=== PATIENT | female | born 1975 | race Caucasian/White ===

== ENCOUNTER 2022-12-03 02:51 | Emergency (ER) | payer OTHER, SELFPAY ==
[2022-12-03 02:57] VITALS: BP 152/70; PULSE 66; O2SAT 99
[2022-12-03 03:01] VITALS: BP 129/77; PULSE 93; RESP 18; TEMP 36.6; O2SAT 95; BMI 27.8
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
[2022-12-03 04:15] VITALS: BP 130/71; PULSE 78; RESP 14; TEMP 37.1; O2SAT 96
--- NOTE | 2022-12-03 04:29 | PC.NURSE ---
pt asleep comfortably on stretcher equal chest rise and fall no apparent distress. call sanchez within reach will CTM
== END 2022-12-03 06:09 | disposition home or self-care (01) ==
PROVIDERS: Emergency Provider Student in an Organized Health Care Education/Training Program
DX: F14.10 Cocaine abuse, uncomplicated (principal); I10 Essential (primary) hypertension
CPT/HCPCS: 99283; 99284

== ENCOUNTER 2024-09-02 13:01 | Emergency (ER) | payer OTHER, SELFPAY ==
[2024-09-02 13:22] VITALS: BP 147/99; PULSE 104; RESP 18; TEMP 36.4; O2SAT 96; BMI 41.6
--- NOTE | 2024-09-02 13:23 | ED.GENADULT ---
HPI - General Adult General Chief complaint: Psychiatric Symptoms Stated complaint: crisis Time Seen by Provider: 09/02/24 13:35 Source: patient History of Present Illness ED Provider: nallely myers np HPI narrative: Reports that she was in [facility] in [place] for approximately 7-8 months. She states that after she was discharged she went to her son's house for approximately 1 week. And then she states ?I got dropped off in [place] because I wanted to get high?. She states that she last received her Methadone 80 mg 2 days ago at [facility]. She endorses that she was kicked out of detox as they were trying to wean her off of her regular medications instead of giving her methadone. Asked to use crack cocaine and heroin/fentanyl yesterday. She endorses suicidal ideations with a plan to jump off of a bridge. Admits to increased stressors with her son currently of cancer. She denies any physical complaints at this time. She denies any homicidal ideations. She denies any hallucinations. Denies any alcohol usage. Related Data Home Medications ?Medication ?Instructions ?Recorded ?Confirmed amlodipine 10 mg tablet 10 mg PO DAILY 09/02/24 09/02/24 carisoprodol 350 mg tablet 350 mg PO BID 09/02/24 09/02/24 clonazepam 1 mg tablet 1 mg PO BID 09/02/24 09/02/24 clonidine HCl 0.1 mg tablet 0.1 mg PO BID PRN Anxiety 09/02/24 09/02/24 docusate sodium 100 mg capsule 100 mg PO BID 09/02/24 09/02/24 (Stool Softener) duloxetine 20 mg capsule,delayed 40 mg PO BID 09/02/24 09/02/24 release gabapentin 300 mg capsule 300 mg PO TID 09/02/24 09/02/24 hydroxyzine pamoate 50 mg capsule 50 mg PO TID PRN Anxiety 09/02/24 09/02/24 ibuprofen 800 mg tablet 800 mg PO TID PRN Pain 09/02/24 09/02/24 omeprazole 20 mg capsule,delayed 20 mg PO DAILY@0630 09/02/24 09/02/24 release propranolol 10 mg tablet 10 mg PO DAILY 09/02/24 09/02/24 methadone 10 mg/mL oral 80 mg PO DAILY 09/03/24 09/03/24 concentrate (Methadone Intensol) Allergies Allergy/AdvReac Type Severity Reaction Status Date / Time haloperidol [From HALDOL] Allergy Unknown ANAPHYLAXIS Verified 09/02/24 13:27 naproxen [From NAPROSYN] Allergy Unknown UNKNOWN Verified 09/02/24 13:27 olanzapine [From ZYPREXA] Allergy Unknown ANAPHYLAXIS Verified 09/02/24 13:27 Review of Systems Review of Systems: Yes all other systems are reviewed and are negative PMFSH Past Medical History Attestation statement: The following information was validated with the patient. Source: old records reviewed Social History Social History Smoked in Last 30 Days: Yes Use of substances other than those prescribed or required for medical reasons: Yes Substance Use Type: Crack/Cocaine, Heroin and Opiates Substance Use Frequency: Chronic Longstanding Last Used Substance: Days (ago) Any prior treatment program specific to substance use: Yes Advance Directives: No Advance Directives Information Provided: No Do you have a plan to hurt others: No Plan Patient : No Physical Exam ED Vital Signs: Vital Signs - 24 hr 09/03/24 16:13 09/04/24 01:41 09/04/24 08:05 Temperature 97.7 F 98.7 F 98.6 F Pulse Rate 72 64 69 Respiratory Rate 13 16 16 Blood Pressure 113/74 151/79 H 126/57 L Pulse Oximetry 96 92 92 Oxygen Delivery Method Room Air Room Air Room Air 09/04/24 08:06 Temperature Pulse Rate Respiratory Rate Blood Pressure 126/57 L Pulse Oximetry Oxygen Delivery Method BMI result Body Mass Index 41.6 Appearance: Alert.?Oriented to person, place and time. No acute distress.?Normal affect. Eyes: Pupils equal, round and reactive to light.? ENT: Pharynx normal.?? Neck: Normal inspection.? Neck supple.?? CVS: Heart sounds normal. Normal heart rate and rhythm.? Pulses normal.?? Respiratory: No respiratory distress.? Lung sounds clear to auscultation bilaterally?? Abdomen: Soft and non-tender. Normoactive bowel sounds. Skin: Skin warm and dry.? Normal skin color.? Extremities: No lower extremity edema.? Neuro: Moves all extremities spontaneously. Sensation intact bilaterally. CN II-XII intact. No focal neuro deficits. Ambulates with normal steady gait. Course Course Course Narrative: This is a rapid medical exam performed by Daquan Ny NP: Additional HPI, ROS, PE not included below will be deferred to primary provider. 09/02/24 13:23 Patient is a 49-year-old female presenting to the ED with report of suicidal ideation after being kicked out of detox. Plan to jump off the bridge. Reports issues with detox, stating they were weaning her off her regular medications instead of getting her on methadone. Last used crack or heroin/fentanyl yesterday, denies alcohol use. States son is dying of cancer. Plan: med clearance, CARE eval Reevaluation(s) Reevaluation #1: Time: 19:36 Date: 09/03/24 Provider: Jai Russell MD Patient in physician observation for psychiatric evaluation.? No acute events reported overnight. No current complaints. VS stable.? Patient is in bed search status.. Will continue to monitor. The patient is methadone dosing was confirmed. The patient normally takes 80 mg of methadone. However because the patient had not taken methadone for 3 days the patient was given 60 mg of methadone today. Reevaluation #2: Time: 10:51 Date: 09/04/24 Provider: Yanely Webb DO Physician observation ended at 1051am. Patient to be admitted as inpatient to psychiatry [facility] Medications Administered Generic Name Dose Route Start Last Admin Trade Name Freq PRN Reason Stop Dose Admin Amlodipine Besylate 10 mg 09/03/24 09:00 09/04/24 08:10 Amlodipine Besylate 10 Mg Tablet PO Not Given DAILY SIDRA Protocol Carisoprodol 350 mg 09/02/24 21:00 09/04/24 08:06 Carisoprodol 350 Mg Tablet PO 350 mg BID SIDRA Administration Clonazepam 1 mg 09/02/24 21:00 09/04/24 08:06 Clonazepam 1 Mg Tablet PO 1 mg BID SIDRA Administration Docusate Sodium 100 mg 09/02/24 21:00 09/04/24 08:06 Docusate Sodium 100 Mg Capsule PO 100 mg BID SIDRA Administration Duloxetine HCl 40 mg 09/02/24 21:00 09/04/24 08:06 Duloxetine Hcl 20 Mg Capsule. PO 40 mg BID SIDRA Administration Gabapentin 300 mg 09/02/24 21:00 09/04/24 08:06 Gabapentin 300 Mg Capsule PO 300 mg TID SIDRA Administration Ibuprofen 800 mg 09/02/24 16:00 09/04/24 01:35 Ibuprofen 800 Mg Tablet PO 800 mg TID PRN Administration Pain, Moderate(Pain Scale 4-6) Omeprazole 20 mg 09/03/24 06:30 09/04/24 08:06 Omeprazole 20 Mg Capsule. PO 20 mg DAILY@0630 SIDRA Administration Propranolol HCl 10 mg 09/03/24 09:00 09/04/24 08:06 Propranolol Hcl 10 Mg Tablet PO 10 mg DAILY SIDRA Administration Protocol Discontinued Medications Generic Name Dose Route Start Last Admin Trade Name Roberthq PRN Reason Stop Dose Admin Ibuprofen 600 mg 09/03/24 04:36 09/03/24 06:18 Ibuprofen 600 Mg Tablet PO 09/03/24 04:37 Not Given ONCE ONE Methadone HCl 30 mg 09/03/24 09:18 09/03/24 09:37 Methadone Hcl 20 Mg/2 Ml Oral.Conc PO 09/03/24 09:19 30 mg ONCE ONE Administration Methadone HCl 30 mg 09/03/24 12:00 09/03/24 12:25 Methadone Hcl 20 Mg/2 Ml Oral.Conc PO 09/03/24 12:01 30 mg ONCE ONE Administration Methadone HCl 40 mg 09/04/24 07:42 09/04/24 08:07 Methadone Hcl 20 Mg/2 Ml Oral.Conc PO 09/04/24 07:43 40 mg ONCE ONE Administration Methadone HCl 30 mg 09/04/24 10:10 09/04/24 10:25 Methadone Hcl 20 Mg/2 Ml Oral.Conc PO 09/04/24 10:11 30 mg ONCE ONE Administration Nicotine 21 mg 09/03/24 12:40 09/03/24 13:25 Nicotine 21 Mg Patch.Td24 TRANSDERMA 09/03/24 12:41 21 mg ONCE ONE Administration Medical Decision Making Medical Decision Making MDM Narrative: Patient is a 49-year-old female with past medical history of polysubstance use disorder, anxiety, depression, hypertension who presents emergency department for evaluation of suicidal ideations with a plan as per HPI. She offers no physical complaints and physical examination is overall benign. She arrives mildly tachycardic, she does endorse feeling anxious. Plan to obtain serum labs for medical clearance, referred to care team for safe disposition planning given her suicidal ideations. Differential Diagnosis Differential Diagnoses: The differential diagnosis associated with the presentation includes (See narrative above and below for further detail) Admission/Observation Consideration of admission/observation: Escalation of care including admission/observation considered Patient is being observed in the Emergency Department for depression and anxiety. Observation time was started at 14:05 on 09/02/24.?The patient is currently stable and non-toxic appearing. Observation is being initiated in the Emergency Department to allow time to help differentiate if the patient's depression and anxiety is due to Substance Induced Mood Disorder and Anxiety versus Major Depressive Disorder, Bipolar Jina, Bipolar Depression, and Schizophrenia. The patient will receive frequent psychiatric assessments from the provider as well as from nursing staff. The patient will also be monitored for the need of PRN agitation medications such as Haldol, Ativan, and Benadryl. Consult Healthcare Provider Management of the patient was discussed with: Behavioral Health Provider (CARE team) Lab Data MDM Lab Attestation statement: I reviewed the patient's lab results. 09/03/24 07:52 09/02/24 15:49 Labs: Lab Results 09/02/24 09/02/24 09/03/24 Range/Units 13:44 15:49 07:52 WBC 8.2 (4.8-10.8) X10*3/uL RBC 5.38 (4.20-5.50) X10*6/uL Hgb 15.9 (12.0-16.0) g/dl Hct 46.8 (37.0-47.0) % MCV 87.0 (80.0-98.0) fL MCH 29.6 (27.0-33.0) pg MCHC 34.0 (31.0-35.0) g/dl RDW 13.2 (11.0-16.0) % Plt Count 327 (160-400) X10*3/uL MPV 9.9 (9.4-12.3) fL Immature Gran % (Auto) 0.1 (0.0-0.4) % Neut % (Auto) 65.3 (45-73) % Lymph % (Auto) 20.5 (20-40) % [place] % (Auto) 10.0 (2-11) % Eos % (Auto) 3.5 (0-4) % Baso % (Auto) 0.6 (0-2) % Lymph # (Auto) 1.7 (1.2-4.9) X10*3/uL [place] # (Auto) 0.8 (0.1-1.2) X10*3/uL Eos # (Auto) 0.3 (0.0-0.4) X10*3/uL Baso # (Auto) 0.1 (0.0-0.2) X10*3/uL Abs Immat Gran (auto) 0.01 (0.00-0.03) X10*3/uL Absolute Neuts (auto) 5.3 (2.0-8.3) x10*3/uL Absolute Nucleated RBC 0.000 (0.0-0.012) X10*3/uL Nucleated RBC % (auto) 0.0 (0.0-0.2) /100WBC Sodium 140 (135-145) mmol/L Potassium 4.4 (3.3-5.1) mmol/L Chloride 103 (96-108) mmol/L Carbon Dioxide 25 (22-29) mmol/L Anion Gap 16 (12-20) BUN 9 (9-16) mg/dL Creatinine 0.65 (0.5-1.4) mg/dL Estim Creat Clear Calc 110.8 Estimated GFR > 60 Random Glucose 123 H (60-115) mg/dL Calcium 9.1 (8.4-10.2) mg/dL Total Bilirubin 0.4 (0.0-1.0) mg/dL AST 69 H (5-31) U/L ALT 46 H (0-31) U/L Alkaline Phosphatase 75 (39-117) U/L Total Protein 8.2 H (6.5-8.0) g/dL Albumin 3.9 (3.5-5.0) g/dL Urine Color Yellow Urine Appearance Cloudy Urine pH 6.5 (5.0-9.0) Ur Specific [place] 1.010 (1.005-1.025) Urine Protein Negative (Neg-Trace) mg/dL Urine Glucose (UA) Negative (Negative) mg/dL Urine Ketones Trace (Negative) mg/dL Urine Blood Trace H (Negative) Urine Nitrite Negative (Negative) Ur Leukocyte Esterase Negative (Negative) Urine RBC 0-2 (0-2) /HPF Urine WBC 0-5 (0-5) /HPF Ur Squamous Epith Cells >20 (0-2) /HPF Urine Bacteria Trace (None Seen) Hyaline Casts 0-2 (0-2) /LPF Urine Opiates Screen POSITIVE H (Not Detect) Ur Buprenorphine Scrn Not Detected (Not Detect) ng/mL Ur Oxycodone Screen Not Detected (Not Detect) ng/mL Urine Methadone Screen Positive H (Not Detect) ng/mL Urine Fentanyl Screen POSITIVE H (Not Detect) Ur Barbiturates Screen Not Detected (Not Detect) Ur Phencyclidine Scrn Not Detected (Not Detect) Ur Amphetamines Screen Not Detected (Not Detect) U Benzodiazepines Scrn POSITIVE H (Not Detect) Urine Cocaine Screen POSITIVE H (Not Detect) U Marijuana (THC) Screen Not Detected (Not Detect) Ethyl Alcohol < 10 mg/dL Influenza Type A (PCR) NEGATIVE (Negative) Influenza Type B (PCR) NEGATIVE (Negative) RSV RNA Qual (PCR) NEGATIVE (Negative) SARS-CoV-2 RNA (RT-PCR) NEGATIVE (Negative) External Record Review External record reviewed: Outpatient record Chronic Conditions Patient?s care impacted by: Other (See narrative above) Discharge Plan Discharge Clinical Impression: Suicidal ideation Patient Disposition: [facility] Transfer Details: Alida Loera Prescriptions: No Action carisoprodol 350 mg tablet 350 mg PO BID clonidine HCl 0.1 mg tablet 0.1 mg PO BID PRN (Reason: Anxiety) ibuprofen 800 mg tablet 800 mg PO TID PRN (Reason: Pain) clonazepam 1 mg tablet 1 mg PO BID hydroxyzine pamoate 50 mg capsule 50 mg PO TID PRN (Reason: Anxiety) propranolol 10 mg tablet 10 mg PO DAILY amlodipine 10 mg tablet 10 mg PO DAILY docusate sodium [Stool Softener] 100 mg capsule 100 mg PO BID gabapentin 300 mg capsule 300 mg PO TID omeprazole 20 mg capsule,delayed release(DR/EC) 20 mg PO DAILY@0630 duloxetine 20 mg capsule,delayed release(DR/EC) 40 mg PO BID methadone [Methadone Intensol] 10 mg/mL Concentrate 80 mg PO DAILY Interventions: [place]-Suicide Risk Severity Scale Last Done: 09/03/24 15:00 Print Language: Ivorian
--- NOTE | 2024-09-02 14:33 | MHC.EDTECH ---
Syd[place] in traige tried twice on blood draw. I also tried twice in the pod and was unsuccessful. Patient is a difficult stick with very limited access.
[2024-09-02 14:51] LABS: Influenza A PCR NEGATIVE (Negative); Influenza B PCR NEGATIVE (Negative); Resp Syncy Virus RNA Qual PCR NEGATIVE (Negative); SARS COV2 PCR INHOUSE NEGATIVE (Negative)
--- NOTE | 2024-09-02 15:33 | PHA.MEDREC ---
Addendum entered by Jina Hansen RPh 09/02/24 15:44: MED REC REVIEWED BY [facility] Original Note: Pharmacy Consult ? Medication Reconciliation Pharmacy has completed the medication reconciliation. Used patient blister packs to confirm med rec ([facility]). Docusate, omeprazole, and ibuprofen are all dated from February 2024. Hydroxyzine was dated from January 2024.
[2024-09-02 16:32] LABS: Alanine Aminotransferase 46 U/L (0-31); Albumin Level 3.9 g/dL (3.5-5.0); Anion Gap 16 (12-20); Aspartate Amino Transferase 69 U/L (5-31); Bilirubin Total 0.4 mg/dL (0.0-1.0); Blood Urea Nitrogen 9 mg/dL (9-16); Calcium 9.1 mg/dL (8.4-10.2); Carbon Dioxide 25 mmol/L (22-29); Chloride 103 mmol/L (96-108); Creatinine Clr Calc Pharmacy 110.8; Estimated Glomerular Filt Rate > 60; Ethanol < 10 mg/dL; Glucose Random 123 mg/dL (60-115); Potassium 4.4 mmol/L (3.3-5.1); Sodium 140 mmol/L (135-145); Total Protein 8.2 g/dL (6.5-8.0)
[2024-09-02 16:47] LABS: Alkaline Phosphatase 75 U/L (39-117)
[2024-09-02 17:29] VITALS: BP 129/68; PULSE 88; RESP 14; O2SAT 93
--- NOTE | 2024-09-02 20:31 | PC.NURSE ---
patient resting in bed upon t/ws arrival to unit, cbc was not obtained, provider had requsted again for staff to attempt. t/w approached and client declined not tonight even with differing staff.
[2024-09-02] MEDS: carisoprodoL 350 MG TABLET PO (20:45)
[2024-09-02] MEDS: Docusate Sodium 100 MG CAPSULE PO (20:46)
[2024-09-02] MEDS: DULoxetine HCl 20 MG CAPSULE.DR 40 MG PO (20:46)
[2024-09-02] MEDS: clonazePAM 1 MG TABLET PO (20:46)
[2024-09-02] MEDS: Gabapentin 300 MG CAPSULE PO (20:46)
--- NOTE | 2024-09-03 03:18 | PC.NURSE ---
report received from Gabrielle rn, pt sleeping at this time.
--- NOTE | 2024-09-03 04:11 | PC.NURSE ---
pt has back pain from the bed. Pain scale is over 6/10, provider called for appropriate pain med.
--- NOTE | 2024-09-03 04:28 | PC.NURSE ---
pt has back pain 03/02. pt now states that she is feeling dizzy. pt is alert and oriented, vitals taken 147/81, hr 82, sat 96% 97.5 oral.
[2024-09-03 04:30] VITALS: BP 147/81; PULSE 82; RESP 17; TEMP 36.4; O2SAT 96
--- NOTE | 2024-09-03 04:34 | PC.NURSE ---
pt doesnt want to be woken up for her 0630 medication.
[2024-09-03] MEDS: Ibuprofen 800 MG TABLET PO (04:42)
--- NOTE | 2024-09-03 04:46 | PC.NURSE ---
pt has her underpants off and on her chair. pt states she wants to wash them today. pt informed that we have lavonne pants and mesh underpants for her and she declined. pt was getting upset and states she doesn't want the pants or briefs.
--- NOTE | 2024-09-03 04:48 | PC.NURSE ---
pt is in a green gown and came over from the ed already changed over per prev rn Gabrielle.
--- NOTE | 2024-09-03 04:55 | PC.NURSE ---
pt refused to give her under pants over to this rn. pt does have pod lavonne pants on. Pt refused to give up the underpants and stuffed them down her lavonne pants, security is aware and we are monitoring. Underpants left in the room by prev shift.
[2024-09-03 06:21] VITALS: BP 147/81; PULSE 82; RESP 17; TEMP 36.4
[2024-09-03 07:57] LABS: MANUAL DIFF FLAG NO
[2024-09-03 08:07] LABS: Basophils Absolute Auto 0.1 X10*3/uL (0.0-0.2); Basophils Percent Auto 0.6 % (0-2); Eosinophils Absolute Auto 0.3 X10*3/uL (0.0-0.4); Eosinophils Percent Auto 3.5 % (0-4); Hematocrit 46.8 % (37.0-47.0); Hemoglobin 15.9 g/dl (12.0-16.0); Imm Gran Abs Auto 0.01 X10*3/uL (0.00-0.03); Imm Gran Pct Auto 0.1 % (0.0-0.4); Lymphocytes Absolute Auto 1.7 X10*3/uL (1.2-4.9); Lymphocytes Percent Auto 20.5 % (20-40); Mean Corpuscular Hemoglobin 29.6 pg (27.0-33.0); Mean Platelet Volume 9.9 fL (9.4-12.3); Monocytes Absolute Auto 0.8 X10*3/uL (0.1-1.2); Neutrophils Absolute Auto 5.3 x10*3/uL (2.0-8.3); Neutrophils Percent Auto 65.3 % (45-73); Platelet Count 327 X10*3/uL (160-400); Red Blood Count 5.38 X10*6/uL (4.20-5.50); Red Cell Distribution Width 13.2 % (11.0-16.0); White Blood Count 8.2 X10*3/uL (4.8-10.8)
[2024-09-03 08:08] LABS: Amphetamine Screen Urine Not Detected (Not Detect); Barbiturates, Urine Not Detected (Not Detect); Benzodiazepines Screen Urine POSITIVE (Not Detect); Buprenorphine Scr Not Detected (Not Detect); Cannabinoid Screen Urine Not Detected (Not Detect); Cocaine Screen Urine POSITIVE (Not Detect); Fentanyl, urine POSITIVE (Not Detect); Methadone Screen, Urine Positive (Not Detect); Opiate Screen Urine POSITIVE (Not Detect); Oxycodone Screen Urine Not Detected (Not Detect); Phencyclidine Screen Urine Not Detected (Not Detect)
[2024-09-03 08:10] LABS: Appearance Urine Cloudy; Color Urine Yellow; Glucose Urine UA Negative (Negative); Leukocyte Esterase Urine Negative (Negative); Nitrite Urine Negative (Negative); PH 6.5 (5.0-9.0); UMIC TRIGGER UACC YES; Urine Blood Trace (Negative); Urine Ketones Trace mg/dL (Negative); Urine Protein Negative (Neg-Trace)
[2024-09-03] MEDS: DULoxetine HCl 20 MG CAPSULE.DR 40 MG PO ×2 (08:10→20:11)
[2024-09-03] MEDS: amLODIPine Besylate 10 MG TABLET PO (08:10)
[2024-09-03] MEDS: clonazePAM 1 MG TABLET PO ×2 (08:11→20:11)
[2024-09-03] MEDS: Gabapentin 300 MG CAPSULE PO ×3 (08:11→20:11)
[2024-09-03] MEDS: Omeprazole 20 MG CAPSULE.DR PO (08:11)
[2024-09-03] MEDS: Propranolol HCL 10 MG TABLET PO (08:11)
[2024-09-03] MEDS: carisoprodoL 350 MG TABLET PO ×2 (08:12→20:11)
[2024-09-03] MEDS: Docusate Sodium 100 MG CAPSULE PO ×2 (08:12→20:11)
[2024-09-03 08:15] LABS: Bacteria Urine Trace (None Seen); Hyaline Casts Urine 0-2 /LPF (0-2); RBC Urine 0-2 /HPF (0-2); Squamous Epithelial Cell Urine >20 /HPF (0-2); WBC Urine 0-5 /HPF (0-5)
--- NOTE | 2024-09-03 09:05 | PC.NURSE ---
Patient requesting methadone at shift change. stating gets methadone [facility]. Attempted to call multiple numbers for [facility] in [facility], unable to verify methadone dose. Patient stating that she actually gets her methadone from [facility] in [place]. [facility] to find [facility] in [facility]. [place] [facility] stating there is not [place] [facility] and attemtped to transfer this RN to speak with nursing staff at this facility phone rings and then hags up. Provider aware that patient is stating she takes 80mg of methadone but dose has been unable to be verified
[2024-09-03] MEDS: methADONE HCl 20 MG/2 ML ORAL.CONC 30 MG PO ×2 (09:37→12:25)
--- NOTE | 2024-09-03 11:32 | PC.NURSE ---
Verified methadone dose with Trinh Engel at [facility]. Patients last dose was 80mg on 08/30/24, provider aware
--- NOTE | 2024-09-03 11:42 | HE.PHANOTE ---
re methadone verification: last dose 80 mg given on 08/30/24 @ [facility] ([phone])
[2024-09-03] MEDS: Nicotine 21 MG PATCH.TD24 TRANSDERMA (13:25)
[2024-09-03 16:13] VITALS: BP 113/74; PULSE 72; RESP 13; TEMP 36.5; O2SAT 96
--- NOTE | 2024-09-04 | ECG_ITS ---
Test Reason : check qtc Blood Pressure : */* mmHG Vent. Rate : 70 BPM Atrial Rate : 70 BPM P-R Int : 154 ms QRS Dur : 76 ms QT Int : 414 ms P-R-T Axes : 60 20 23 degrees QTcB Int : 447 ms Normal sinus rhythm Normal ECG When compared with ECG of 12-Sep-2017 10:12, Nonspecific T wave abnormality now evident in Anterior leads Referred By: Yanely Webb Electronically Signed By: HERNANDEZ LINTON MD
[2024-09-04] MEDS: Ibuprofen 800 MG TABLET PO (01:35)
[2024-09-04 01:41] VITALS: BP 151/79; PULSE 64; RESP 16; TEMP 37.1; O2SAT 92
--- NOTE | 2024-09-04 05:59 | PC.NURSE ---
Patient slept through the night, no distress observed/reported, meds and meals compliant. 15 minutes safety check, no behavior and safety concerns, disposition per care team is section 12 dual diagnosis bed search, will continue to monitor
--- NOTE | 2024-09-04 07:19 | PC.NURSE ---
Assumed care of patient at 0645, patient is sleeping on a mattress on the floor in BH 4, respirations even and unlabored, no apparent distress is noted at this time. Continue plan of care for S12 dual dx bedsearch
[2024-09-04 08:05] VITALS: BP 126/57; PULSE 69; RESP 16; TEMP 37; O2SAT 92
[2024-09-04 08:06] VITALS: BP 126/57
[2024-09-04] MEDS: Docusate Sodium 100 MG CAPSULE PO (08:06)
[2024-09-04] MEDS: carisoprodoL 350 MG TABLET PO (08:06)
[2024-09-04] MEDS: Propranolol HCL 10 MG TABLET PO (08:06)
[2024-09-04] MEDS: Omeprazole 20 MG CAPSULE.DR PO (08:06)
[2024-09-04] MEDS: clonazePAM 1 MG TABLET PO (08:06)
[2024-09-04] MEDS: Gabapentin 300 MG CAPSULE PO (08:06)
[2024-09-04] MEDS: DULoxetine HCl 20 MG CAPSULE.DR 40 MG PO (08:06)
[2024-09-04] MEDS: methADONE HCl 20 MG/2 ML ORAL.CONC 40 MG PO (08:07)
[2024-09-04] MEDS: methADONE HCl 20 MG/2 ML ORAL.CONC 30 MG PO (10:25)
--- NOTE | 2024-09-04 10:48 | MHC.CARE ---
patient has been accepted to [facility] @ [address] [place] [address] ETA 1pm, N2N not needed, the accepting provider is Lisa. Transport is being worked on now.
[2024-09-04 12:15] VITALS: BP 126/57; PULSE 69; RESP 16; TEMP 37; O2SAT 92
--- NOTE | 2024-09-05 13:20 | PC.NURSE ---
PTS SON, CHRIS, COLLECTED MEDICATIONS THAT WERE FORGOTTEN BY PT ON 09/05/24 AT 1321. ID VERIFIED BY RN.
== END 2024-09-04 12:16 | disposition short-term general hospital (02) ==
PROVIDERS: Registered Nurse Emergency; Emergency Provider Emergency Medicine
DX: R45.851 Suicidal ideations (principal); F14.10 Cocaine abuse, uncomplicated; F11.10 Opioid abuse, uncomplicated; F43.9 Reaction to severe stress, unspecified; R94.31 Abnormal electrocardiogram [ECG] [EKG]; Z79.899 Other long term (current) drug therapy; Z51.81 Encounter for therapeutic drug level monitoring; Z03.818 Encounter for observation for suspected exposure to other biological agents ruled out
CPT/HCPCS: 0241U; 36415; 80053; 80307; 81001; 81003; 85025; 93005; 99285; S9485

== ENCOUNTER → 2024-09-04 09:06 | Outpatient (BNV) | payer OTHER, SELFPAY | PROVIDERS: Emergency Provider Emergency Medicine; Visit Provider Internal Medicine Cardiovascular Disease | DX: Z13.6 Encounter for screening for cardiovascular disorders (principal) | CPT/HCPCS: 93010 ==